=== PATIENT | male | born 1960 | race Caucasian/White ===

== ENCOUNTER 2016-06-07 12:51 | Inpatient (IN) | payer OTHER ==
[2016-06-07 15:30] VITALS: BMI 22.6
--- NOTE | 2016-06-07 17:44 | HP ---
CIWA Score - CIWA Score Nausea/Vomitin-Mild Nausea/No Vomiting Muscle Tremors: 4-Moderate,w/Arms Extend Anxiety: 5 Agitation: 4-Moderately Restless Paroxysmal Sweats: 2 Orientation: 1-Uncertain about Date Tacttile Disturbances: 0-None Auditory Disturbances: 0-None Visual Disturbances: 0-None Headache: 0-None Present CIWA-Ar Total Score: 17 Admission [facility] Chief Complaint: WITHDRAWAL SX FELL 06/03/16 LEFT ORBITAL BRUISES, DENIES ALTERATION OF VISION, TREATED AT [facility], NEGATIVE CT SCANE, 6 SUTURE LATERAL INFERIOR ORBITAL, CLEAN INTACT TOLERATE WELL Allergies/Adverse Reactions: Allergies Allergy/AdvReac Type Severity Reaction Status Date / Time No Known Allergies Allergy Verified 06/07/16 16:55 History of Present Illness: 55 YEARS OLD MALE WITH LONG HISTORY OF ALCOHOL XANAX NICOTINE DEPENDENCE, HAS POSITIVE PPD, HEPATITIS C, COPD ASTHMA CIRRHOSISI OF LIVER AND KIDNEY STONEX 3 YEARS Exam Limitations: No Limitations - Ebola screening Have you traveled outside of the country in the last 21 days: No Have you had contact with anyone from an Ebola affected area: No Have you been sick,other than usual withdrawal symptoms: No Do you have a fever: No - Review of Systems Constitutional: Chills, Loss of Appetite, Changes in sleep, Unintentional Wgt. Loss, Unexplained wgt Loss EENT: reports: No Symptoms Reported Respiratory: reports: SOB with Exertion, Productive cough (GREENISH) Cardiac: reports: No Symptoms Reported GI: reports: Nausea, Poor Appetite, Poor Fluid Intake, Indigestion, Abdominal cramping : reports: Other (HISTORY OF KIDNEY STONE X 3 RESOLVED) Musculoskeletal: reports: Back Pain, Joint Pain, Muscle Pain (ARTHRITIS OF KNEES ) Integumentary: reports: Change in Color (BRUISE LEFT ORBITAL) Neuro: reports: Seizure (ALCOHOL XANAX WITHDRAWAL RELATED LAST EPISODE TWO WEEKS AGO), Tremors Endocrine: reports: No Symptoms Reported Hematology: reports: No Symptoms Reported Psychiatric: reports: Judgement Intact, Depressed Other Systems: Reviewed and Negative Patient History - Patient Medical History Hx Anemia: No Hx Asthma: Yes Hx Chronic Obstructive Pulmonary Disease (COPD): Yes Hx Cancer: No Hx Cardiac Disorders: No Hx Congestive Heart Failure: No Hx Hypertension: No Hx Hypercholesterolemia: No Hx Pacemaker: No HX Cerebrovascular Accident: No Hx Seizures: Yes (ALCOHOL XANAX RELATED TWO WEEKS AGO AROUND 05/27/16) Hx Dementia: No Hx Diabetes: No Hx Gastrointestinal Disorders: Yes Hx Liver Disease: Yes Hx Genitourinary Disorders: No Hx Sexually Transmitted Disorders: No Hx Renal Disease (ESRD): No Hx Thyroid Disease: No Hx Human Immunodeficiency Virus (HIV): No Hx Hepatitis C: Yes (SCHEDULE TO BE TREATED) Hx Depression: Yes Hx Suicide Attempt: No Hx Bipolar Disorder: No Hx Schizophrenia: No - Patient Surgical History Past Surgical History: Yes Hx Neurologic Surgery: No Hx Cataract Extraction: No Hx Cardiac Surgery: No Hx Lung Surgery: No Hx Breast Surgery: No Hx Breast Biopsy: No Hx Abdominal Surgery: No Hx Appendectomy: No Hx Cholecystectomy: No Hx Genitourinary Surgery: No Hx Orthopedic Surgery: No Other Surgical History: RIGHT EAR 1984 Anesthesia Reaction: No - PPD History Previous Implant?: Yes Documented Results: Positive w/o proof Implanted On Prior [facility] Admission?: No PPD to be Administered?: No - Smoking Cessation Smoking history: Current every day smoker Have you smoked in the past 12 months: Yes Aproximately how many cigarettes per day: 10 Cigars Per Day: 0 Hx Chewing Tobacco Use: No Initiated information on smoking cessation: Yes 'Breaking Loose' booklet given: 06/07/16 - Substance & Tx. History Hx Alcohol Use: Yes Hx Substance Use: Yes Substance Use Type: Alcohol, Opiates, Tranquilizers Hx Substance Use Treatment: Yes - Substances Abused Alcohol Route: Oral Frequency: Daily Amount used: LIQUOR- 2 PINT, BEER- 3 SIX PACK Age of first use: 11 Date of Last Use: 06/06/16 Alprazolam (Xanax) Route: Oral Frequency: Daily Amount used: 6mg Age of first use: 52 Date of Last Use: 06/06/16 Family Disease History - Family Disease History Family Disease History: Diabetes: Mother, Sister, [place]: Sister, Other: Father (NO CONTACT), Brother (NO CONTACT) Admission Physical Exam B[facility] - Vital Signs Vital Signs: Vital Signs - 24 hr 06/07/16 15:26 Temperature 97 F L Pulse Rate 83 Respiratory 20 Rate Blood Pressure 144/91 - Physical General Appearance: Yes: Appropriately Dressed, Moderate Distress, Thin, Tremorous, Irritable, Sweating, Anxious HEENTM: Yes: Hearing grossly Normal, Normal ENT Inspection, Normocephalic, Normal Voice Respiratory: Yes: Chest Non-Tender, No Respiratory Distress, No Accessory Muscle Use, Wheezing (CLEAR AFTER COUGH), Hyperresonant Neck: Yes: Supple, Trachea in good position Breast: Yes: Breasts Symetrical Cardiology: Yes: Regular Rhythm, Regular Rate, S1, S2 Abdominal: Yes: Non Tender, Soft Genitourinary: Yes: Within Normal Limits Back: Yes: Normal Inspection Musculoskeletal: Yes: full range of Motion, Gait Steady (ARTHRITIS OF KNEES CANE ), Back pain Extremities: Yes: Normal Range of Motion, Non-Tender, Tremors Neurological: Yes: Alert, Motor Strength 5/5, Normal Response, Depressed Affect Integumentary: Yes: Warm Lymphatic: Yes: Within Normal Limits - Diagnostic (1) Alcohol dependence with uncomplicated withdrawal Current Visit: Yes Status: Acute (2) Methadone maintenance therapy patient Current Visit: Yes Status: Acute Comment: 40 MG VERIFICATION PENDING (3) Positive PPD, treated Current Visit: Yes Status: Resolved Comment: CHEST X RAY PENDING (4) Hepatitis C antibody test positive Current Visit: Yes Status: Chronic Comment: SCHEDULE TO BE TREATED (5) Weight loss Current Visit: Yes Status: Acute (6) GERD (gastroesophageal reflux disease) Current Visit: Yes Status: Acute Qualifiers: Esophagitis presence: without esophagitis Qualified Code(s): K21.9 - Gastro-esophageal reflux disease without esophagitis (7) Nicotine dependence Current Visit: Yes Status: Acute Qualifiers: Nicotine product type: cigarettes Substance use status: in withdrawal Qualified Code(s): F17.213 - Nicotine dependence, cigarettes, with withdrawal (8) Alcoholic cirrhosis of liver Current Visit: Yes Status: Chronic Qualifiers: Ascites presence: without ascites Qualified Code(s): K70.30 - Alcoholic cirrhosis of liver without ascites (9) Asthma Current Visit: Yes Status: Acute Qualifiers: Asthma severity: mild intermittent Asthma complication type: with status asthmaticus Qualified Code(s): J45.22 - Mild intermittent asthma with status asthmaticus (10) COPD (chronic obstructive pulmonary disease) Current Visit: Yes Status: Acute Qualifiers: COPD type: emphysema (11) Chronic bronchitis Current Visit: Yes Status: Acute Qualifiers: Chronic bronchitis type: simple Qualified Code(s): J41.0 - Simple chronic bronchitis (12) Kidney stone Current Visit: Yes Status: Resolved (13) Depression (emotion) Current Visit: Yes Status: Suspected Qualifiers: Depression Type: dysthymia Qualified Code(s): F34.1 - Dysthymic disorder (14) Bruise of eye Current Visit: Yes Status: Acute Qualifiers: Encounter type: subsequent encounter Laterality: left Qualified Code(s): S00.12XD - Contusion of left eyelid and periocular area, subsequent encounter Comment: TREATED AT [facility] NEGATIVE CT OF FACE RELEASED 05/27/16 6 SUTURE LATERAL INFERIOR Cleared for Admission [facility] - Detox or Rehab [facility] Level of Care: Medically Managed Detox Regimen/Protocol: Librium [facility] Breath Alcohol Content Breath Alcohol Content: 0 Urine Drug Screen - Results Drug Screen Negative: No Urine Drug Screen Results: OPI-Opiates, BZO-Benzodiazepines, MTD-Methadone, TCA- Tricyclic Antidepress
[2016-06-07] MEDS ORDERED: guaiFENesin/D-METHORPHAN HB 10 ML UNIT-DOSE CUPS PO PRN (17:57)
[2016-06-07] MEDS ORDERED: ACETAMINOPHEN 325 MG TABLET (FP) PO PRN (17:57)
[2016-06-07] MEDS ORDERED: NICOTINE POLACRILEX 2 MG GUM BC PRN (17:57)
[2016-06-07] MEDS ORDERED: LOPERAMIDE HCL 2 MG CAPSULE PO PRN (17:57)
[2016-06-07] MEDS ORDERED: MAGNESIUM CITRATE 300 ML BOTTLE PO PRN (17:57)
[2016-06-07] MEDS ORDERED: MAG HYDROX/AL HYDROX/SIMETH 30 ML UNIT-DOSE CUP PO PRN (17:57)
[2016-06-07] MEDS ORDERED: MENTHOL/PHENOL 1 EACH UD MM PRN (17:57)
[2016-06-07] MEDS ORDERED: MAGNESIUM HYDROX 2400MG/30ML ORAL SUSPENSION 30 ML CUP PO PRN (17:57)
[2016-06-07] MEDS ORDERED: P-EPHED 60MG/TRIPROLIDI 2.5MG TABLET PO PRN (17:57)
[2016-06-07] MEDS ORDERED: diphenhydrAMINE HCL 50 MG CAPSULE PO PRN (17:57)
[2016-06-07] MEDS ORDERED: chlordiazePOXIDE HCL 25 MG CAPSULE PO PRN (17:57)
[2016-06-07] MEDS ORDERED: chlordiazePOXIDE HCL 25 MG CAPSULE PO ONE (17:57)
[2016-06-07] MEDS ORDERED: ALBUTEROL SO4 2.5/IPRATROPIUM 0.5 INH SOL 3 ML VIAL.NEB. NEB PRN (18:02)
[2016-06-07] MEDS: ALBUTEROL SO4 6.7 GM HFA INHALER IH PRN (22:13)
[2016-06-07] MEDS: chlordiazePOXIDE HCL 25 MG CAPSULE PO SCH (22:14)
[2016-06-07] MEDS: THIAMINE HCL 100 MG TABLET (FP) PO SCH (22:14)
[2016-06-07] MEDS: RANITIDINE HCL 150 MG TABLET (FP) PO SCH (22:14)
[2016-06-07] MEDS: MONTELUKAST NA 5 MG TAB.CHEW PO SCH (22:15)
[2016-06-07 22:47] LABS: URINE APPEARANCE SLCLOUDY; URINE BILIRUBIN NEGATIVE (NEGATIVE); URINE BLOOD NEGATIVE (NEGATIVE); URINE GLUCOSE (UA) NEGATIVE (NEGATIVE); URINE KETONE TRACE (NEGATIVE); URINE LEUK ESTERASE NEGATIVE (NEGATIVE); URINE NITRITE NEGATIVE (NEGATIVE); URINE UROBILINOGEN 4.0 E.U/dl E.U./dl (0.2-1.0)
[2016-06-07 22:51] LABS: URINE COLOR YELLOW; URINE PROTEIN 1+ (NEGATIVE)
[2016-06-07 22:55] LABS: CALCIUM OXALATE CRYSTALS FEW /hpf (NONE SEEN); URINE HYALINE CAST 6 /lpf; URINE MUCUS MANY; URINE RBC 96 /hpf (0-3); URINE WBC 20 /hpf (3-5)
[2016-06-08] MEDS: chlordiazePOXIDE HCL 25 MG CAPSULE PO SCH ×4 (05:29→23:57)
--- NOTE | 2016-06-08 10:16 | PN ---
S CIWA - CIWA Score Nausea/Vomitin Muscle Tremors: 3 Anxiety: 3 Agitation: 2 Paroxysmal Sweats: 1-Minimal Palms Moist Orientation: 0-Oriented Tacttile Disturbances: 1-Very Mild Itch/Numbness Auditory Disturbances: 1-Very Mild Visual Disturbances: 1-Very Mild Sensitivity Headache: 2-Mild CIWA-Ar Total Score: 17 BHS Progress Note (SOAP) Subjective: ALERT,IRRITABLE,ANXIOUS,INTERRUPTED SLEEP,TREMOR,PAIN IN BODY,BACK Objective: 06/08/16 10:13 Vital Signs Temperature 97.7 F 06/08/16 06:26 Pulse Rate 65 06/08/16 06:26 Respiratory Rate 16 06/08/16 06:26 Blood Pressure 121/72 06/08/16 06:26 O2 Sat by Pulse Oximetry (%) EKG NSR,PROLONG QT Laboratory Last Values Urine Color Yellow 06/07/16 22:36 Urine Appearance Slcloudy 06/07/16 22:36 Urine pH 5.0 (5.0-8.0) 06/07/16 22:36 Ur Specific [place] 1.025 (1.001-1.035) 06/07/16 22:36 Urine Protein 1+ (NEGATIVE) H 06/07/16 22:36 Urine Glucose (UA) Negative (NEGATIVE) 06/07/16 22:36 Urine Ketones Trace (NEGATIVE) H 06/07/16 22:36 Urine Blood Negative (NEGATIVE) 06/07/16 22:36 Urine Nitrite Negative (NEGATIVE) 06/07/16 22:36 Urine Bilirubin Negative (NEGATIVE) 06/07/16 22:36 Urine Urobilinogen 4.0 e.u/dl E.U./dl (0.2-1.0) 06/07/16 22:36 Ur Leukocyte Esterase Negative (NEGATIVE) 06/07/16 22:36 Urine RBC 96 /hpf (0-3) 06/07/16 22:36 Urine WBC 20 /hpf (3-5) 06/07/16 22:36 Calcium Oxalate Crystal Few /hpf (NONE SEEN) 06/07/16 22:36 Hyaline Casts 6 /lpf 06/07/16 22:36 Urine Mucus Many 06/07/16 22:36 WITHDRAWAL SYMPTOM 06/08/16 10:15 Assessment: 06/08/16 10:15 WITHDRAWAL SYMPTOM 06/08/16 10:15 LABS PENDING Plan: CONTINUE DETOX,REPEAT UA,LABS PENDING
[2016-06-08 10:43] LABS: MCH 33.7 pg (25.7-33.7); MCHC 32.7 g/dl (32.0-35.9); MEAN CELL VOLUME 103.2 fl (80-96); MEAN PLT VOLUME 11.3 fl (7.5-11.1); PLATELET COUNT 105 K/MM3 (134-434); RDW 14.8 % (11.9-15.9); WHITE BLOOD COUNT 4.4 K/mm3 (4.0-10.0)
[2016-06-08 11:57] LABS: ALBUMIN 3.5 g/dl (3.4-5.0); ANION GAP 7 (8-16); CO2 30 mmol/L (21-32); GLUCOSE,RANDOM 98 mg/dL (74-106)
[2016-06-08 12:00] LABS: ALK PHOS 136 U/L (45-117); BILIRUBIN,TOTAL 1.9 mg/dL (0.2-1.0); CREATININE 0.8 mg/dL (0.7-1.3); SGOT/AST 195 U/L (15-37); SGPT/ALT 90 U/L (12-78); TOT PROT 7.3 g/dl (6.4-8.2)
[2016-06-08] MEDS ORDERED: METHADONE HCL 40 MG DISPERSABLE TABLET PO ONE (12:00)
[2016-06-08] MEDS: RANITIDINE HCL 150 MG TABLET (FP) PO SCH ×2 (12:16→22:55)
[2016-06-08] MEDS: PRENATAL VITAMINS W/ FOLIC ACID TABLET (FP) PO SCH (12:16)
[2016-06-08] MEDS: NICOTINE 14 MG/24 HOURS TOPICAL PATCH TD SCH (12:17)
[2016-06-08] MEDS: ALBUTEROL SO4 6.7 GM HFA INHALER IH PRN (14:57)
--- NOTE | 2016-06-08 15:38 | CONSULT ---
[facility] Psychiatric Consult - Data Date of interview: 06/08/16 Admission source: [facility] Identifying data: First admission to [facility] for this 55 y/o male seeking detox treatment for alcohol,opiate and benzodiazepine (xanax) dependence.Patient is ,a father of six,homeless,unemployed and supported on Public Assistance. Substance Abuse History: - Smoking Cessation. Smoking history: Current every day smoker. Have you smoked in the past 12 months: Yes. Aproximately how many cigarettes per day: 10. Cigars Per Day: 0. Hx Chewing Tobacco Use: No. Initiated information on smoking cessation: Yes. 'Breaking Loose' booklet given : 06/07/16. - Substance & Tx. History. Hx Alcohol Use: Yes. Hx Substance Use : Yes. Substance Use Type: Alcohol, Opiates, Tranquilizers. Hx Substance Use Treatment: Yes. - Substances Abused. Alcohol. Route: Oral. Frequency: Daily. Amount used: LIQUOR- 2 PINT, BEER- 3 SIX PACK. Age of first use: 11. Date of Last Use: 06/06/16. Alprazolam (Xanax). Route: Oral. Frequency: Daily. Amount used: 6mg. Age of first use: 52. Date of Last Use: 06/06/16. Confirmed by patient. Medical History: Bronchial asthma,COPD,cirrhosis of the liver,hepatitis C,lower back pain and arthritis (both knees). Psychiatric History: History of two psyychiatric hospitalizations.Patient is not on any psychotropic medications.He used to see a private pschiatrist who had kept him on xanax,gabapentin and ambien.Diagnosed with Anxiety Disorder, Depressive Disorder and insomnia.Mr Bellamy has decided " to get rid of these medications." Appointments with psychiiatrist not kept for a couple of months.Patient requests that seroquel be,instead,prescribed to address his insomnia.No history of suicide attempts. Physical/Sexual Abuse/Trauma History: Patient denies. Additional Comment: Urine Drug Screen Results: OPI-Opiates, BZO-Benzodiazepines , MTD-Methadone, TCA-Tricyclic Antidepressants. Mental Status Exam - Mental Status Exam Alert and Oriented to: Time, Place, Person Cognitive Function: Good Patient Appearance: Well Groomed Mood: Hopeful, Euthymic Affect: Appropriate, Normal Range Patient Behavior: Fatigued, Appropriate, Cooperative Speech Pattern: Clear Voice Loudness: Normal Thought Process: Goal Oriented Thought Disorder: Not Present Hallucinations: Denies Suicidal Ideation: Denies Homicidal Ideation: Denies Insight/Judgement: Fair Sleep: Poorly, Difficulty falling asleep Muscle strength/Tone: Normal Gait/Station: Normal Psychiatric Findings - Problem List ([place] 1, 2,3) (1) Alcohol dependence with uncomplicated withdrawal Current Visit: Yes Status: Acute (2) Methadone maintenance therapy patient Current Visit: Yes Status: Acute Comment: 40 MG VERIFICATION PENDING (3) Nicotine dependence Current Visit: Yes Status: Acute Qualifiers: Nicotine product type: cigarettes Substance use status: in withdrawal Qualified Code(s): F17.213 - Nicotine dependence, cigarettes, with withdrawal (4) Benzodiazepine dependence Current Visit: Yes Status: Acute (5) Substance induced mood disorder Current Visit: Yes Status: Acute (6) Asthma Current Visit: Yes Status: Chronic Qualifiers: Asthma severity: mild intermittent Asthma complication type: with status asthmaticus Qualified Code(s): J45.22 - Mild intermittent asthma with status asthmaticus (7) Bruise of eye Current Visit: Yes Status: Acute Qualifiers: Encounter type: subsequent encounter Laterality: left Qualified Code(s): S00.12XD - Contusion of left eyelid and periocular area, subsequent encounter Comment: TREATED AT [facility] NEGATIVE CT OF FACE RELEASED 05/27/16 6 SUTURE LATERAL INFERIOR (8) COPD (chronic obstructive pulmonary disease) Current Visit: Yes Status: Chronic Qualifiers: COPD type: emphysema (9) Chronic bronchitis Current Visit: Yes Status: Chronic Qualifiers: Chronic bronchitis type: simple Qualified Code(s): J41.0 - Simple chronic bronchitis (10) GERD (gastroesophageal reflux disease) Current Visit: Yes Status: Chronic Qualifiers: Esophagitis presence: without esophagitis Qualified Code(s): K21.9 - Gastro-esophageal reflux disease without esophagitis (11) Alcoholic cirrhosis of liver Current Visit: Yes Status: Chronic Qualifiers: Ascites presence: without ascites Qualified Code(s): K70.30 - Alcoholic cirrhosis of liver without ascites (12) Hepatitis C antibody test positive Current Visit: Yes Status: Chronic Comment: SCHEDULE TO BE TREATED (13) Positive PPD, treated Current Visit: Yes Status: Resolved Comment: CHEST X RAY PENDING (14) Insomnia Current Visit: Yes Status: Acute - Initial Treatment Plan Initial Treatment Plan: Psychoeducation.Detoxification.Seroquel 50 mg po hs.Side effects/benefits discussed with patient.He agrees with plan.Observation.
[2016-06-08 18:40] LABS: URINE APPEARANCE CLEAR; URINE BLOOD NEGATIVE (NEGATIVE); URINE COLOR AMBER; URINE GLUCOSE (UA) NEGATIVE (NEGATIVE); URINE KETONE NEGATIVE (NEGATIVE); URINE LEUK ESTERASE NEGATIVE (NEGATIVE); URINE NITRITE NEGATIVE (NEGATIVE); URINE PROTEIN NEGATIVE (NEGATIVE); URINE UROBILINOGEN 4.0 E.U/dl E.U./dl (0.2-1.0)
[2016-06-08] MEDS: QUEtiapine FUMARATE 50 MG TABLET PO SCH (22:55)
[2016-06-08] MEDS: THIAMINE HCL 100 MG TABLET (FP) PO SCH (22:59)
[2016-06-08] MEDS: MONTELUKAST NA 10 MG TABLET PO SCH (23:58)
[2016-06-09] MEDS: MONTELUKAST NA 5 MG TAB.CHEW PO SCH (00:01)
[2016-06-09] MEDS: METHADONE HCL 40 MG DISPERSABLE TABLET PO SCH (05:45)
[2016-06-09] MEDS: chlordiazePOXIDE HCL 25 MG CAPSULE PO SCH ×3 (05:45→17:39)
[2016-06-09] MEDS: RANITIDINE HCL 150 MG TABLET (FP) PO SCH ×2 (10:13→22:31)
[2016-06-09] MEDS: NICOTINE 14 MG/24 HOURS TOPICAL PATCH TD SCH (10:13)
[2016-06-09] MEDS: PRENATAL VITAMINS W/ FOLIC ACID TABLET (FP) PO SCH (10:13)
--- NOTE | 2016-06-09 11:24 | PN ---
[facility] CIWA - CIWA Score Nausea/Vomitin Muscle Tremors: 3 Anxiety: 3 Agitation: 2 Paroxysmal Sweats: 1-Minimal Palms Moist Orientation: 0-Oriented Tacttile Disturbances: 1-Very Mild Itch/Numbness Auditory Disturbances: 1-Very Mild Visual Disturbances: 1-Very Mild Sensitivity Headache: 2-Mild CIWA-Ar Total Score: 17 BHS Progress Note (SOAP) Subjective: ALERT,IRRITABLE,ANXIOUS,INTERRUPTED SLEEP,TREMOR Objective: 06/09/16 11:22 Vital Signs Temperature 98.1 F 06/09/16 09:55 Pulse Rate 63 06/09/16 09:55 Respiratory Rate 16 06/09/16 09:55 Blood Pressure 106/74 06/09/16 09:55 O2 Sat by Pulse Oximetry (%) Laboratory Last Values WBC 4.4 K/mm3 (4.0-10.0) 06/08/16 06:00 RBC 3.87 M/mm3 (4.00-5.60) L 06/08/16 06:00 Hgb 13.0 GM/dL (11.7-16.9) 06/08/16 06:00 Hct 39.9 % (35.4-49) 06/08/16 06:00 MCV 103.2 fl (80-96) H 06/08/16 06:00 MCHC 32.7 g/dl (32.0-35.9) 06/08/16 06:00 RDW 14.8 % (11.9-15.9) 06/08/16 06:00 Plt Count 105 K/MM3 (134-434) L 06/08/16 06:00 MPV 11.3 fl (7.5-11.1) H 06/08/16 06:00 Sodium 137 mmol/L (136-145) 06/08/16 06:00 Potassium 4.6 mmol/L (3.5-5.1) 06/08/16 06:00 Chloride 100 mmol/L (98-107) 06/08/16 06:00 Carbon Dioxide 30 mmol/L (21-32) 06/08/16 06:00 Anion Gap 7 (8-16) L 06/08/16 06:00 BUN 10 mg/dL (7-18) 06/08/16 06:00 Creatinine 0.8 mg/dL (0.7-1.3) 06/08/16 06:00 Creat Clearance w eGFR > 60 (>60) 06/08/16 06:00 Random Glucose 98 mg/dL (74-106) 06/08/16 06:00 Calcium 9.0 mg/dL (8.5-10.1) 06/08/16 06:00 Total Bilirubin 1.9 mg/dL (0.2-1.0) H 06/08/16 06:00 AST 195 U/L (15-37) H 06/08/16 06:00 ALT 90 U/L (12-78) H 06/08/16 06:00 Alkaline Phosphatase 136 U/L (45-117) H 06/08/16 06:00 Total Protein 7.3 g/dl (6.4-8.2) 06/08/16 06:00 Albumin 3.5 g/dl (3.4-5.0) 06/08/16 06:00 Urine Color [place] 06/08/16 17:00 Urine Appearance Clear 06/08/16 17:00 Urine pH 6.0 (5.0-8.0) 06/08/16 17:00 Ur Specific [place] 1.020 (1.001-1.035) 06/08/16 17:00 Urine Protein Negative (NEGATIVE) 06/08/16 17:00 Urine Glucose (UA) Negative (NEGATIVE) 06/08/16 17:00 Urine Ketones Negative (NEGATIVE) 06/08/16 17:00 Urine Blood Negative (NEGATIVE) 06/08/16 17:00 Urine Nitrite Negative (NEGATIVE) 06/08/16 17:00 Urine Bilirubin 2.0 (NEGATIVE) 06/08/16 17:00 Urine Urobilinogen 4.0 e.u/dl E.U./dl (0.2-1.0) 06/08/16 17:00 Ur Leukocyte Esterase Negative (NEGATIVE) 06/08/16 17:00 Urine RBC 96 /hpf (0-3) 06/07/16 22:36 Urine WBC 20 /hpf (3-5) 06/07/16 22:36 Calcium Oxalate Crystal Few /hpf (NONE SEEN) 06/07/16 22:36 Hyaline Casts 6 /lpf 06/07/16 22:36 Urine Mucus Many 06/07/16 22:36 RPR Titer Nonreactive (NONREACTIVE) 06/08/16 06:00 Assessment: 06/09/16 11:23 WITHDRAWAL SYMPTOM Plan: CONTINUE DETOX,REPEAT UA,REPEAT ALT,AST,INR IN AM FOR TRANSAMINASEMIA,D/C TYLENOL
--- NOTE | 2016-06-09 11:39 | EKG ---
Test Reason : Blood Pressure : / mmHG Vent. Rate : 074 BPM Atrial Rate : 074 BPM P-R Int : 140 ms QRS Dur : 086 ms QT Int : 442 ms P-R-T Axes : 070 069 058 degrees QTc Int : 490 ms NORMAL SINUS RHYTHM PROLONGED QT ABNORMAL ECG NO PREVIOUS ECGS AVAILABLE Confirmed by CHARLES ARCHULETA MD ([id number]) on 06/09/2016 11:39:19 AM Referred By: Confirmed By:CHARLES ARCHULETA MD
[2016-06-09] MEDS: THIAMINE HCL 100 MG TABLET (FP) PO SCH (22:32)
[2016-06-09] MEDS: QUEtiapine FUMARATE 50 MG TABLET PO SCH (22:32)
[2016-06-09] MEDS: MONTELUKAST NA 10 MG TABLET PO SCH (22:32)
[2016-06-09] MEDS: chlordiazePOXIDE 5 MG CAPSULE PO SCH (22:32)
[2016-06-10] MEDS: chlordiazePOXIDE 5 MG CAPSULE PO SCH ×3 (06:02→17:18)
[2016-06-10] MEDS: METHADONE HCL 40 MG DISPERSABLE TABLET PO SCH (06:02)
[2016-06-10 10:14] LABS: INR 1.28 (0.82-1.09); PROTHROMBIN TIME (PATIENT) 14.1 SEC (9.98-11.88)
[2016-06-10] MEDS: NICOTINE 14 MG/24 HOURS TOPICAL PATCH TD SCH (10:14)
[2016-06-10] MEDS: PRENATAL VITAMINS W/ FOLIC ACID TABLET (FP) PO SCH (10:16)
[2016-06-10] MEDS: RANITIDINE HCL 150 MG TABLET (FP) PO SCH ×2 (10:16→22:44)
[2016-06-10 10:49] LABS: SGOT/AST 122 U/L (15-37); SGPT/ALT 71 U/L (12-78)
--- NOTE | 2016-06-10 10:53 | PN ---
BHS Progress Note (SOAP) Subjective: interrupted sleep, sweats, uncomfortable Objective: 06/10/16 10:48 Vital Signs Temperature 97 F L 06/10/16 10:11 Pulse Rate 72 06/10/16 10:11 Respiratory Rate 16 06/10/16 10:11 Blood Pressure 85/60 06/10/16 10:11 O2 Sat by Pulse Oximetry (%) Laboratory Tests 06/07/16 06/08/16 06/08/16 22:36 06:00 06:00 WBC 4.4 RBC 3.87 L Hgb 13.0 Hct 39.9 MCV 103.2 H MCHC 32.7 RDW 14.8 Plt Count 105 L MPV 11.3 H Sodium 137 Potassium 4.6 Chloride 100 Carbon Dioxide 30 Anion Gap 7 L BUN 10 Creatinine 0.8 Creat Clearance w eGFR > 60 Random Glucose 98 Calcium 9.0 Total Bilirubin 1.9 H AST 195 H ALT 90 H Alkaline Phosphatase 136 H Total Protein 7.3 Albumin 3.5 Urine Color Yellow Urine Appearance Slcloudy Urine pH 5.0 Ur Specific [place] 1.025 Urine Protein 1+ H Urine Glucose (UA) Negative Urine Ketones Trace H Urine Blood Negative Urine Nitrite Negative Urine Bilirubin Negative Urine Urobilinogen 4.0 e.u/dl Ur Leukocyte Esterase Negative Urine RBC 96 Urine WBC 20 Calcium Oxalate Crystal Few Hyaline Casts 6 Urine Mucus Many RPR Titer 06/08/16 06/08/16 06:00 17:00 WBC RBC Hgb Hct MCV MCHC RDW Plt Count MPV Sodium Potassium Chloride Carbon Dioxide Anion Gap BUN Creatinine Creat Clearance w eGFR Random Glucose Calcium Total Bilirubin AST ALT Alkaline Phosphatase Total Protein Albumin Urine Color Lydia Urine Appearance Clear Urine pH 6.0 Ur Specific [place] 1.020 Urine Protein Negative Urine Glucose (UA) Negative Urine Ketones Negative Urine Blood Negative Urine Nitrite Negative Urine Bilirubin 2.0 Urine Urobilinogen 4.0 e.u/dl Ur Leukocyte Esterase Negative Urine RBC Urine WBC Calcium Oxalate Crystal Hyaline Casts Urine Mucus RPR Titer Nonreactive pt aox3 , ambulating Assessment: 06/10/16 10:50 withdrawl sx's Plan: cont. detox increase fluids glucerna bid
[2016-06-10] MEDS: ALBUTEROL SO4 6.7 GM HFA INHALER IH PRN (17:34)
[2016-06-10] MEDS ORDERED: chlordiazePOXIDE 5 MG CAPSULE ONE (21:43)
[2016-06-10] MEDS: chlordiazePOXIDE HCL 10 MG CAPSULE PO SCH (22:43)
[2016-06-10] MEDS: THIAMINE HCL 100 MG TABLET (FP) PO SCH (22:44)
[2016-06-10] MEDS: MONTELUKAST NA 10 MG TABLET PO SCH (22:44)
[2016-06-10] MEDS: QUEtiapine FUMARATE 50 MG TABLET PO SCH (22:44)
[2016-06-11] MEDS ORDERED: chlordiazePOXIDE 5 MG CAPSULE ONE (03:41)
[2016-06-11] MEDS: METHADONE HCL 40 MG DISPERSABLE TABLET PO SCH (05:44)
[2016-06-11] MEDS: chlordiazePOXIDE HCL 10 MG CAPSULE PO SCH ×2 (05:44→10:42)
--- NOTE | 2016-06-11 09:00 | DS ---
[facility] Detox Discharge Summary Admission Date: 06/07/16 Discharge Date: 06/11/16 - History Present History: Alcohol Dependence, Sedative Dependence, MMTP - Physical Exam Results Vital Signs: Vital Signs Temperature 97.5 F L 06/11/16 06:36 Pulse Rate 65 06/11/16 06:36 Respiratory Rate 16 06/11/16 06:36 Blood Pressure 103/67 06/11/16 06:36 O2 Sat by Pulse Oximetry (%) - Treatment Hospital Course: Detox Protocol Followed, Detoxed Safely, Responded well, Discharged Condition Good, Rehab Referral Accepted - Medication Discharge Medications: Ambulatory Orders Albuterol Sulfate Inhaler - [Ventolin Hfa Inhaler -] 1 - 2 inh PO QID 06/07/16 Montelukast Na [Singulair -] 10 mg PO HS 06/07/16 Quetiapine Fumarate [Seroquel -] 50 mg PO HS #30 tablet 06/08/16 - Diagnosis (1) Alcohol dependence with uncomplicated withdrawal Current Visit: Yes Status: Chronic (2) Benzodiazepine dependence Current Visit: Yes Status: Chronic (3) Bruise of eye Current Visit: Yes Status: Acute Qualifiers: Encounter type: subsequent encounter Laterality: left Qualified Code(s): S00.12XD - Contusion of left eyelid and periocular area, subsequent encounter (4) Insomnia Current Visit: Yes Status: Acute (5) Methadone maintenance therapy patient Current Visit: Yes Status: Chronic (6) Nicotine dependence Current Visit: Yes Status: Chronic Qualifiers: Nicotine product type: cigarettes Substance use status: uncomplicated Qualified Code(s): F17.210 - Nicotine dependence, cigarettes, uncomplicated (7) Substance induced mood disorder Current Visit: Yes Status: Acute (8) Weight loss Current Visit: Yes Status: Acute (9) Alcoholic cirrhosis of liver Current Visit: Yes Status: Chronic Qualifiers: Ascites presence: without ascites Qualified Code(s): K70.30 - Alcoholic cirrhosis of liver without ascites (10) Asthma Current Visit: Yes Status: Chronic Qualifiers: Asthma severity: mild intermittent Asthma complication type: with status asthmaticus Qualified Code(s): J45.22 - Mild intermittent asthma with status asthmaticus (11) COPD (chronic obstructive pulmonary disease) Current Visit: Yes Status: Chronic Qualifiers: COPD type: emphysema (12) Chronic bronchitis Current Visit: Yes Status: Chronic Qualifiers: Chronic bronchitis type: simple Qualified Code(s): J41.0 - Simple chronic bronchitis (13) GERD (gastroesophageal reflux disease) Current Visit: Yes Status: Chronic Qualifiers: Esophagitis presence: without esophagitis Qualified Code(s): K21.9 - Gastro-esophageal reflux disease without esophagitis (14) Hepatitis C antibody test positive Current Visit: Yes Status: Chronic (15) Depression (emotion) Current Visit: Yes Status: Suspected Qualifiers: Depression Type: dysthymia Qualified Code(s): F34.1 - Dysthymic disorder (16) Kidney stone Current Visit: Yes Status: Resolved (17) Positive PPD, treated Current Visit: Yes Status: Resolved - AMA Did Patient Leave Against Medical Advice: No
[2016-06-11 10:01] VITALS: BP 88/60; PULSE 76; TEMP 97.3
[2016-06-11] MEDS: NICOTINE 14 MG/24 HOURS TOPICAL PATCH TD SCH (10:40)
[2016-06-11] MEDS: PRENATAL VITAMINS W/ FOLIC ACID TABLET (FP) PO SCH (10:41)
[2016-06-11] MEDS: RANITIDINE HCL 150 MG TABLET (FP) PO SCH (10:41)
== END 2016-06-11 12:22 | disposition other institution (70) | DRG 773 ==
LOC: YASAS 12:51 → Y6N 17:44
PROVIDERS: ADMIT Internal Medicine Addiction Medicine; ATTEND Internal Medicine Addiction Medicine
PROC: HZ2ZZZZ Detoxification Services for Substance Abuse Treatment (ICD-10-PCS; principal; 2016-06-11)
DX: F11.20 Opioid dependence, uncomplicated (principal); F13.20 Sedative, hypnotic or anxiolytic dependence, uncomplicated; F10.230 Alcohol dependence with withdrawal, uncomplicated; F19.24 Other psychoactive substance dependence with psychoactive substance-induced mood disorder; F34.1 Dysthymic disorder; G47.00 Insomnia, unspecified; J45.22 Mild intermittent asthma with status asthmaticus; J44.9 Chronic obstructive pulmonary disease, unspecified; J41.0 Simple chronic bronchitis; K70.30 Alcoholic cirrhosis of liver without ascites; K21.9 Gastro-esophageal reflux disease without esophagitis; B18.2 Chronic viral hepatitis C; R76.11 Nonspecific reaction to tuberculin skin test without active tuberculosis; Z87.442 Personal history of urinary calculi; S00.12XD Contusion of left eyelid and periocular area, subsequent encounter
CPT/HCPCS: 36415; 71020-TC; 80053; 81003; 81015; 84450; 84460; 85027; 85610; 86593; 93005; 93010